=== PATIENT | female | born 1945 | race Caucasian/White ===

== ENCOUNTER 2020-08-20 09:43 | Outpatient (REF) | payer OTHER, SELFPAY ==
[2020-08-20 11:15] LABS: MANUAL DIFF FLAG NO
[2020-08-20 11:28] LABS: Basophils Percent Auto 0.5 % (0-2); Eosinophils Absolute Auto 0.1 X10*3/uL (0.0-0.4); Eosinophils Percent Auto 1.6 % (0-4); Hematocrit 38.2 % (37-47); Hemoglobin 12.5 g/dl (12.0-16.0); Imm Gran Abs Auto 0.01 X10*3/uL (0.00-0.03); Imm Gran Pct Auto 0.2 % (0.0-0.4); Lymphocytes Absolute Auto 1.1 X10*3/uL (1.2-4.9); Lymphocytes Percent Auto 19.2 % (20-40); Mean Corpuscular HGB Conc 32.7 g/dl (31.0-35.0); Mean Corpuscular Hemoglobin 31.2 pg (27.0-33.0); Mean Corpuscular Volume 95.3 fL (80-98); Mean Platelet Volume 11.9 fL (9.4-12.3); Monocytes Absolute Auto 0.4 X10*3/uL (0.1-1.2); Monocytes Percent Auto 6.5 % (2-11); Platelet Count 239 X10*3/uL (160-400); Red Blood Count 4.01 X10*6/uL (4.20-5.50); Red Cell Distribution Width 13.6 % (11.0-16.0); White Blood Count 5.6 X10*3/uL (4.8-10.8)
[2020-08-20 12:10] LABS: Alanine Aminotransferase 20 U/L (0-31); Albumin Level 4.6 g/dL (3.5-5.0); Alkaline Phosphatase 89 U/L (39-117); Anion Gap 13 (12-20); Aspartate Amino Transferase 45 U/L (5-31); Bilirubin Total 0.7 mg/dL (0.0-1.0); Blood Urea Nitrogen 16 mg/dL (9-16); Carbon Dioxide 32 mmol/L (22-29); Chloride 101 mmol/L (96-108); Cholesterol 207 mg/dL; Estimated Glomerular Filt Rate > 60; Glucose Fasting 97 mg/dL (60-99); HDL Cholesterol 61 mg/dL; LDL Cholesterol Calculated 130 mg/dl; Potassium 3.9 mmol/l (3.3-5.1); Sodium 142 mmol/L (135-145); Total Protein 7.3 g/dL (6.5-8.0); Triglycerides 82 mg/dL
[2020-08-20 12:27] LABS: Thyroid Stimulating Hormone 1.31 uIU/mL (0.32-4.0); Vitamin D 25-OH Total 42.1 ng/mL (>30)
== END 2020-08-20 09:44 | disposition home or self-care (01) ==
LOC: HO.HMGCLDS 09:43
PROVIDERS: PCP Internal Medicine; Visit Provider Internal Medicine
DX: E78.5 Hyperlipidemia, unspecified (principal); M81.0 Age-related osteoporosis without current pathological fracture; Z00.00 Encounter for general adult medical examination without abnormal findings; E83.52 Hypercalcemia
CPT/HCPCS: 36415; 80053; 80061; 82306; 84443; 85025

== ENCOUNTER 2020-09-01 12:42 | Outpatient (REF) | payer OTHER, SELFPAY ==
[2020-09-01 15:02] LABS: Calcium 16.9 mg/dL (8.4-10.2)
[2020-09-02 23:12] LABS: PTHI 514 pg/mL (14-64)
[2020-09-05 08:40] LABS: Calcium (PTHI) >15.0
== END 2020-09-01 12:43 | disposition home or self-care (01) ==
LOC: HO.HMGCLDS 12:42
PROVIDERS: PCP Internal Medicine; Visit Provider Internal Medicine
DX: E83.52 Hypercalcemia (principal)
CPT/HCPCS: 82310; 82330; 83970

== ENCOUNTER 2020-09-13 16:39 | Outpatient (REF) | payer OTHER, SELFPAY ==
--- NOTE | 2020-09-13 16:39 | US_ITS ---
EXAMINATION: LEFT UPPER EXTREMITY VENOUS ULTRASOUND CLINICAL INFORMATION: Left arm swelling status post IV puncture COMPARISON: None. TECHNIQUE: Doppler spectral analysis and color flow Doppler imaging was performed of the left upper extremity. Compression and augmentation maneuvers were performed. FINDINGS: The left internal jugular vein, subclavian vein, axillary vein, brachial vein, basilic vein, cephalic vein, and visualized forearm veins were well-identified and normal. They demonstrate normal compressibility and color fill-in. A prominent left axillary lymph node present measuring 1.7 x 1.1 x 1.7 cm. It has normal morphology with a large fatty carlos. US/US venous duplex UE LT IMPRESSION: No evidence for left upper extremity deep vein thrombosis.
== END 2020-09-13 16:40 | disposition home or self-care (01) ==
LOC: HO.US 16:39
PROVIDERS: PCP Internal Medicine; Visit Provider Internal Medicine
DX: R60.0 Localized edema (principal); M79.89 Other specified soft tissue disorders
CPT/HCPCS: 93971

== ENCOUNTER 2020-09-17 09:29 | Outpatient (REF) | payer OTHER, SELFPAY ==
[2020-09-17 13:35] LABS: Alanine Aminotransferase 12 U/L (0-31); Albumin Level 4.2 g/dL (3.5-5.0); Alkaline Phosphatase 88 U/L (39-117); Anion Gap 14 (12-20); Aspartate Amino Transferase 20 U/L (5-31); Bilirubin Total 0.3 mg/dL (0.0-1.0); Blood Urea Nitrogen 9 mg/dL (9-16); Carbon Dioxide 25 mmol/L (22-29); Chloride 104 mmol/L (96-108); Estimated Glomerular Filt Rate > 60; Glucose Random 106 mg/dL (60-115); Potassium 4.1 mmol/l (3.3-5.1); Sodium 139 mmol/L (135-145); Total Protein 7.2 g/dL (6.5-8.0)
[2020-09-17 13:40] LABS: Calcium 11.6 mg/dL (8.4-10.2)
[2020-09-20 14:02] LABS: Calcium, Ionized 6.4 mg/dL (4.8-5.6)
== END 2020-09-17 09:30 | disposition home or self-care (01) ==
LOC: HO.HMGCLDS 09:29
PROVIDERS: PCP Internal Medicine; Visit Provider Internal Medicine
DX: E83.52 Hypercalcemia (principal)
CPT/HCPCS: 80053; 82330

== ENCOUNTER 2020-09-20 | Outpatient (REF) | payer OTHER, SELFPAY ==
[2020-09-20 15:24] LABS: Total Volume 24 Hour Urine 1725 mL
[2020-09-20 15:43] LABS: Creatinine, 24Hr Urine 0.7 G/Day (1.0-2.0); Creatinine, mg/dL 41.25
[2020-09-21 18:21] LABS: Calcium, 24 Hr Urine 167 mg/24 h; Calcium/Creatinine Ratio 220 mg/g creat (30-275); Creatinine 24Hr Urine 0.76 g/24 h (0.50-2.15)
== END 2020-09-20 00:01 | disposition home or self-care (01) ==
LOC: HO.HMGCLNP
PROVIDERS: Visit Provider Internal Medicine
DX: E21.3 Hyperparathyroidism, unspecified (principal)
CPT/HCPCS: 82340; 82570